=== PATIENT | female | born 1985 | race Two or more races ===

== ENCOUNTER 2021-02-25 17:24 | Emergency (ER) | payer OTHER ==
[~2021-02-25] VITALS: Ht 157.5 cm; Wt 56.7 kg
[2021-02-25] MEDS ORDERED: BENZONATATE200 M1 PO (20:31)
== END 2021-02-25 20:34 | disposition home or self-care (01) ==
LOC: ER 17:24
DX: B34.9 Viral infection, unspecified (principal); Z03.818 Encounter for observation for suspected exposure to other biological agents ruled out; J02.9 Acute pharyngitis, unspecified

== ENCOUNTER 2023-11-25 00:50 | Emergency (ER) | payer OTHER ==
[~2023-11-25] VITALS: Ht 160 cm; Wt 46.3 kg
[~2023-11-25 00:50] MED LIST: BENZONATATE200 M1 PO
[2023-11-25] MEDS ORDERED: TETANUS & DIPHTHERIA TOX,ADULT 0.5 ML VIAL IM STA (01:20)
[2023-11-25] MEDS ORDERED: CLINDAMYCIN PHOSPHATE 150 MG/ML (900mg) IV STA (01:20)
[2023-11-25] MEDS ORDERED: TETANUS DIPHTHERIA TOX. ADSOR 5 ML VIAL IM ONE (01:26)
[2023-11-25] MEDS ORDERED: CLINDAMYCIN PHOSPHATE 150 MG/ML (300mg) ONE (01:26)
[2023-11-25] MEDS ORDERED: LIDOCAINE HCL 1% 10ML VIAL ONE (01:31)
[2023-11-25] MEDS ORDERED: POVIDONE-IODINE 118 ML BOTT TOP ONE (01:43)
[2023-11-25] MEDS ORDERED: HYDROGEN PEROXIDE 473 ML BOTTLE TOP ONE (01:44)
== END 2023-11-25 02:46 | disposition home or self-care (01) ==
LOC: ER 00:52
DX: S01.85XA Open bite of other part of head, initial encounter (principal); T14.8XXA Other injury of unspecified body region, initial encounter; W54.0XXA Bitten by dog, initial encounter; Y93.89 Activity, other specified; Y92.89 Other specified places as the place of occurrence of the external cause; Y99.8 Other external cause status

== ENCOUNTER 2023-11-29 13:35 | Emergency (ER) | payer OTHER ==
[~2023-11-29] VITALS: Ht 157.5 cm; Wt 59.0 kg
== END 2023-11-29 15:39 | disposition home or self-care (01) ==
LOC: ER 13:36
DX: S01.552A Open bite of oral cavity, initial encounter (principal); W54.0XXA Bitten by dog, initial encounter; Y93.89 Activity, other specified; Y92.89 Other specified places as the place of occurrence of the external cause

== ENCOUNTER 2023-12-04 14:12 | Emergency (ER) | payer OTHER ==
[~2023-12-04] VITALS: Ht 160 cm; Wt 70.3 kg
[2023-12-04] MEDS ORDERED: CEFTRIAXONE SODIUM 1,000 MG VIAL IM STA (17:00)
[2023-12-04] MEDS ORDERED: NASAL MIST126 ML NASAL (17:04)
[2023-12-04] MEDS ORDERED: AMOX1TAB5 PO (17:04)
[2023-12-04] MEDS ORDERED: CEFTRIAXONE SODIUM 1,000 MG VIAL ONE (17:06)
[2023-12-04] MEDS ORDERED: AUGMENTIN XR 11 EACH PO (17:22)
== END 2023-12-04 17:59 | disposition home or self-care (01) ==
LOC: ER 14:13
DX: T81.41XA Infection following a procedure, superficial incisional surgical site, initial encounter (principal); B99.8 Other infectious disease

== ENCOUNTER 2023-12-08 09:46 | Emergency (ER) | payer OTHER ==
[~2023-12-08] VITALS: Ht 157.5 cm; Wt 59.0 kg
[~2023-12-08 09:46] MED LIST changes: +AMOX1TAB5 PO; +AUGMENTIN XR 11 EACH PO; +NASAL MIST126 ML NASAL
== END 2023-12-08 17:24 | disposition home or self-care (01) ==
LOC: ER 09:48
DX: T81.49XA Infection following a procedure, other surgical site, initial encounter (principal); X58.XXXA Exposure to other specified factors, initial encounter; Y92.89 Other specified places as the place of occurrence of the external cause

== ENCOUNTER 2025-03-11 23:31 | Emergency (ER) | payer OTHER ==
[~2025-03-11] VITALS: Ht 157.5 cm; Wt 59.0 kg
[2025-03-12 00:29] VITALS: BP 122/78; O2SAT 100
[2025-03-12] MEDS ORDERED: TETANUS & DIPHTHERIA TOX,ADULT 0.5 ML VIAL IM ONE (00:45)
[2025-03-12] MEDS ORDERED: MONDOXYNE NL100 MG PO (01:45)
== END 2025-03-12 04:18 | disposition home or self-care (01) ==
LOC: ER 23:32
DX: S61.451A Open bite of right hand, initial encounter (principal); W54.0XXA Bitten by dog, initial encounter; Y93.89 Activity, other specified; Y92.89 Other specified places as the place of occurrence of the external cause